=== PATIENT | male | born 1980 | race Caucasian/White ===

== ENCOUNTER 2016-12-14 21:40 | Emergency (ER) | payer BC ==
[~2016-12-14] VITALS: Ht 175.3 cm; Wt 85.5 kg
[~2016-12-14 21:40] MED LIST: BENLYSTA120 MG; DOXYCYCLINE 10100 MG PO; HYDROXYCHLOR; LEVOXYL0.05 MG PO; LORTAB 5/500 501 TAB; LORTAB 5/500 501 TAB PO; MOTRIN 800800 MG/TAB PO; NO HOME MEDICATIONS; NORCO 325 MG-51 TAB PO; PREDNISONE 5MG5 MG PO; PREDNISONE10 MG; PREDNISONE10 MG PO; PREDNISONE20 MG PO; ULTRAM 50MG TAB50 MG; ULTRAM 50MG TAB50 MG PO; ZOFRAN 4MG T4 MG/TAB PO; ZOFRAN ODT4 MG PO; ZOFRAN8 MG PO
[2016-12-14 21:44] VITALS: TEMP 100.6
[2016-12-14] MEDS ORDERED: MOTRIN 800800 MG/TAB PO (22:08)
[2016-12-14] MEDS ORDERED: PLAQUENIL 200M200 MG PO (22:09)
[2016-12-14 22:29] LABS: BASO % 0.2 % (0.0-2.0); EOS % 0.5 % (0-4.0); GRAN # 6.7 (1.4-6.5); GRAN % 79.3 % (42.2-75.2); HEMATOCRIT 43.6 % (42.0-52.0); LYMPH # 0.9 (1.2-3.4); LYMPH % 10.4 % (20.0-51.0); MEAN CELL VOLUME 88 fl (80.0-100.0); MEAN CORPUSCULAR HEMOGLOBIN 30 pg (27.0-31.0); MEAN CORPUSCULAR HGB CONC 34 g/dl (33.0-37.0); MEAN PLATELET VOLUME 9.6 fl (7.4-10.4); MONO # 0.8 (0.1-0.6); MONO % 8.9 % (1.7-9.3); PLATELET COUNT 178 K/mm3 (130-400); RED BLOOD COUNT 4.98 M/mm3 (4.20-5.60); REDCELL DISTRIBUTION WIDTH-CV 13.2 % (11.5-14.5); WHITE BLOOD COUNT 8.4 K/mm3 (4.8-10.8)
[2016-12-14 22:44] LABS: ADJUSTED CALCIUM 9.2 mg/dL (8.4-10.2); ALBUMIN 4.4 gm/dL (3.5-5.0); BILIRUBIN,TOTAL 0.8 mg/dL (0.0-1.0); C-REACTIVE PROTEIN 6.1 mg/dL (0.0-0.9); CALCIUM 9.5 mg/dL (8.4-10.2); CREATININE, serum 1.03 mg/dL (0.66-1.25); TOTAL PROTEIN 8.5 gm/dL (6.4-8.2)
[2016-12-14 23:07] LABS: INFLUENZA B NEGATIVE
[2016-12-14 23:12] LABS: ERYTHROCYTE SEDIMENTATION RATE 40 mm/hr (0-15)
[2016-12-14 23:20] LABS: PH 6 (5-8); SQUAMOUS EPITHELIAL 0-2 /hpf; URINE APPEARANCE Clear; URINE BACTERIA None Seen /hpf; URINE BILIRUBIN Negative (NEGATIVE); URINE BLOOD Negative (NEGATIVE); URINE COLOR Yellow; URINE GLUCOSE Negative (NEGATIVE); URINE KETONE Negative (NEGATIVE); URINE UROBILINOGEN Negative (NEGATIVE); URINE WBC 0-2 /hpf
[2016-12-15 00:37] LABS: CEREBROSPINAL TUBE #1; CEREBROSPINAL TUBE #4; CSF APPEARANCE CLEAR; CSF COLOR COLORLESS
[2016-12-15] MEDS ORDERED: NORCO 325 MG-51 TAB PO (01:03)
[2016-12-15 01:07] VITALS: BP 117/86; PULSE 86
== END 2016-12-15 01:09 | disposition home or self-care (01) ==
LOC: COL.ER 21:40
PROVIDERS: Emergency Medicine
DX: R51 Headache (principal); R50.9 Fever, unspecified; F17.210 Nicotine dependence, cigarettes, uncomplicated; M54.2 Cervicalgia
CPT/HCPCS: J0696; J1170; J2405; J7030; J7512

== ENCOUNTER → 2017-02-08 | Outpatient (CLI) | payer BC ==
[~2017-02-08] MED LIST changes: +PLAQUENIL 200M200 MG PO
== END ==
LOC: COL.RAD 08:04
DX: M32.19 Other organ or system involvement in systemic lupus erythematosus (principal)
CPT/HCPCS: A9585

== ENCOUNTER 2017-07-07 14:02 | Emergency (ER) | payer BC ==
[~2017-07-07] VITALS: Ht 175.3 cm; Wt 92.3 kg
[2017-07-07 14:04] VITALS: TEMP 98.9
[2017-07-07] MEDS ORDERED: ASPIRIN 81M81 MG/TA2 PO (14:16)
[2017-07-07] MEDS ORDERED: CELLCEPT 250MG250 MG PO (14:18)
[2017-07-07 14:26] LABS: HEMOGLOBIN 16.4 g/dl (13.5-18.0); MEAN CELL VOLUME 90 fl (80.0-100.0); MEAN CORPUSCULAR HEMOGLOBIN 31 pg (27.0-31.0); MEAN CORPUSCULAR HGB CONC 34 g/dl (33.0-37.0); MEAN PLATELET VOLUME 11.3 fl (7.4-10.4); PLATELET COUNT 244 K/mm3 (130-400); RED BLOOD COUNT 5.31 M/mm3 (4.20-5.60); WHITE BLOOD COUNT 13.7 K/mm3 (4.8-10.8)
[2017-07-07 14:30] LABS: PROTHROMBIN TIME 10.5 SECONDS (9.7-12.8)
[2017-07-07 14:31] LABS: ADD PATHOLOGY DIFF REVIEW NO; TOTAL CELLS COUNTED 0
[2017-07-07 14:33] LABS: PARTIAL THROMBOPLASTIN TIME 30.6 SECONDS (26.0-37.0)
[2017-07-07 14:37] LABS: ADJUSTED CALCIUM 9.3 mg/dL (8.4-10.2); ALANINE AMINOTRANSFERASE 37 U/L (21-72); ALBUMIN 4.7 gm/dL (3.5-5.0); ALKALINE PHOSPHATASE 94 U/L (50-136); ANION GAP 13 mmol/L (7-16); BILIRUBIN,TOTAL 0.6 mg/dL (0.0-1.0); BLOOD UREA NITROGEN 16 mg/dL (9-20); C-REACTIVE PROTEIN 1.3 mg/dL (0.0-0.9); CALCIUM 9.9 mg/dL (8.4-10.2); CARBON DIOXIDE 22 mmol/L (22-30); CHLORIDE 105 mmol/L (98-107); CREATININE, serum 0.92 mg/dL (0.66-1.25); GLUCOSE 107 mg/dL (74-106); LIPASE 83 U/L (23-300); POTASSIUM 4.4 mmol/L (3.4-5.0); SODIUM 139 mmol/L (137-145); TOTAL PROTEIN 8.1 gm/dL (6.4-8.2)
[2017-07-07 14:47] LABS: B-TYPE NATRIURETIC PEPTIDE 47 pg/mL (0-125); TROPONIN-I < 0.012 ng/mL (0.000-0.034)
[2017-07-07 15:27] LABS: ERYTHROCYTE SEDIMENTATION RATE 4 mm/hr (0-15)
[2017-07-07] MEDS ORDERED: DOXYCYCLINE 10100 MG PO (17:45)
[2017-07-07] MEDS ORDERED: NORCO 325 MG-51 TAB PO (17:45)
[2017-07-07 18:10] VITALS: BP 117/77; PULSE 76
== END 2017-07-07 18:10 | disposition home or self-care (01) ==
LOC: COL.ER 14:02
PROVIDERS: Emergency Medicine
DX: R07.89 Other chest pain (principal); F17.210 Nicotine dependence, cigarettes, uncomplicated; Z87.39 Personal history of other diseases of the musculoskeletal system and connective tissue; Z79.82 Long term (current) use of aspirin
CPT/HCPCS: J1170; J7030; J7512

== ENCOUNTER 2017-09-03 17:16 | Emergency (ER) | payer BC ==
[~2017-09-03] VITALS: Ht 175.3 cm; Wt 90.9 kg
[~2017-09-03 17:16] MED LIST changes: +ASPIRIN 81M81 MG/TA2 PO; +CELLCEPT 250MG250 MG PO
[2017-09-03 17:21] VITALS: TEMP 98.2
[2017-09-03 18:03] LABS: HEMATOCRIT 45.7 % (42.0-52.0); HEMOGLOBIN 15.6 g/dl (13.5-18.0); MEAN CELL VOLUME 91 fl (80.0-100.0); MEAN CORPUSCULAR HEMOGLOBIN 31 pg (27.0-31.0); MEAN CORPUSCULAR HGB CONC 34 g/dl (33.0-37.0); MEAN PLATELET VOLUME 10.1 fl (7.4-10.4); PLATELET COUNT 323 K/mm3 (130-400); RED BLOOD COUNT 5.04 M/mm3 (4.20-5.60); WHITE BLOOD COUNT 11.8 K/mm3 (4.8-10.8)
[2017-09-03 18:05] LABS: ADD PATHOLOGY DIFF REVIEW NO
[2017-09-03 18:15] LABS: ADJUSTED CALCIUM 8.7 mg/dL (8.4-10.2); ALANINE AMINOTRANSFERASE 42 U/L (21-72); ALBUMIN 4.6 gm/dL (3.5-5.0); ALKALINE PHOSPHATASE 108 U/L (50-136); ANION GAP 11 mmol/L (7-16); BILIRUBIN,TOTAL 0.5 mg/dL (0.0-1.0); BLOOD UREA NITROGEN 16 mg/dL (9-20); CALCIUM 9.2 mg/dL (8.4-10.2); CARBON DIOXIDE 23 mmol/L (22-30); CHLORIDE 105 mmol/L (98-107); CREATININE, serum 1.02 mg/dL (0.66-1.25); GLUCOSE 114 mg/dL (74-106); POTASSIUM 4.8 mmol/L (3.4-5.0); SODIUM 140 mmol/L (137-145); TOTAL PROTEIN 7.7 gm/dL (6.4-8.2)
[2017-09-03 18:49] LABS: TROPONIN-I < 0.012 ng/mL (0.000-0.034)
[2017-09-03 19:07] LABS: ERYTHROCYTE SEDIMENTATION RATE 11 mm/hr (0-15)
[2017-09-03 19:13] LABS: BAND 35 % (0-10); LYMPHOCYTE 4 % (20.0-51.0); NEUTROPHILS 60 % (42.0-75.2); PLATELET ESTIMATE NORMAL (NORMAL); TOTAL CELLS COUNTED 100
[2017-09-03 19:45] VITALS: BP 130/98; PULSE 89
== END 2017-09-03 19:45 | disposition home or self-care (01) ==
LOC: COL.ER 17:16
PROVIDERS: Family Medicine
DX: M32.9 Systemic lupus erythematosus, unspecified (principal); G04.90 Encephalitis and encephalomyelitis, unspecified; Z79.82 Long term (current) use of aspirin

== ENCOUNTER 2018-03-03 17:30 | Emergency (ER) | payer BC ==
[~2018-03-03] VITALS: Ht 175.3 cm; Wt 90.0 kg
[2018-03-03 17:34] VITALS: TEMP 98.9
[2018-03-03] MEDS ORDERED: BENLYSTA400 MG IV (17:52)
[2018-03-03 18:07] LABS: MEAN CELL VOLUME 88 fl (80.0-100.0); MEAN CORPUSCULAR HEMOGLOBIN 31 pg (27.0-31.0); MEAN CORPUSCULAR HGB CONC 35 g/dl (33.0-37.0); MEAN PLATELET VOLUME 10.1 fl (7.4-10.4); PLATELET COUNT 254 K/mm3 (130-400); RED BLOOD COUNT 4.87 M/mm3 (4.20-5.60); REDCELL DISTRIBUTION WIDTH-CV 13.4 % (11.5-14.5)
[2018-03-03 18:21] LABS: ALBUMIN 4.1 gm/dL (3.5-5.0); BILIRUBIN,TOTAL 0.4 mg/dL (0.0-1.0); CALCIUM 8.7 mg/dL (8.4-10.2); CREATININE, serum 0.98 mg/dL (0.66-1.25); POTASSIUM 3.7 mmol/L (3.4-5.0); TOTAL PROTEIN 7.7 gm/dL (6.4-8.2)
[2018-03-03 18:23] LABS: ANISOCYTOSIS 1+; BAND 7 % (0-10); LYMPHOCYTE 8 % (20.0-51.0); NEUTROPHILS 81 % (42.0-75.2); PLATELET ESTIMATE NORMAL (NORMAL)
[2018-03-03 18:32] LABS: ERYTHROCYTE SEDIMENTATION RATE 9 mm/hr (0-15)
[2018-03-03] MEDS ORDERED: LEVAQUIN 5500 MG/TA1 PO (18:50)
[2018-03-03 19:08] VITALS: BP 132/88; PULSE 86
[2018-03-04] MEDS ORDERED: OMNICEF 300MG300 MG PO (12:10)
[2018-03-04] MEDS ORDERED: TYLENOL 325MG325 MG PO (12:11)
[2018-03-04] MEDS ORDERED: NORCO 325 MG-51 TAB PO (12:12)
== END 2018-03-03 19:09 | disposition home or self-care (01) ==
LOC: COL.ER 17:30
PROVIDERS: Family Medicine
DX: M17.12 Unilateral primary osteoarthritis, left knee (principal)
CPT/HCPCS: J2270; J7030

== ENCOUNTER 2018-03-03 21:36 | Observation (INO) | payer BC ==
[~2018-03-03] VITALS: Ht 175.3 cm; Wt 89.8 kg
[~2018-03-03 21:36] MED LIST changes: +BENLYSTA400 MG IV; +LEVAQUIN 5500 MG/TA1 PO
[2018-03-03 23:59] LABS: SYNOVIAL FL. MONONUCLEAR 25.5 % (0-75); SYNOVIAL FLUID RBC 1112000 /mm3 (0-0)
[2018-03-04 00:06] LABS: SYNOVIAL FLUID APPEARANCE CLOUDY; SYNOVIAL FLUID COLOR RED
[2018-03-04 00:39] VITALS: BP 150/90; PULSE 74; TEMP 97.9
[2018-03-04 03:46] VITALS: BP 124/80; PULSE 74; TEMP 97.6
[2018-03-04 07:32] LABS: BASO % 0.3 % (0.0-2.0); EOS # 0.2 (0.0-0.7); EOS % 3.2 % (0-4.0); GRAN # 5.2 (1.4-6.5); HEMATOCRIT 40.3 % (42.0-52.0); HEMOGLOBIN 13.8 g/dl (13.5-18.0); LYMPH # 1.1 (1.2-3.4); LYMPH % 14.7 % (20.0-51.0); MEAN CELL VOLUME 89 fl (80.0-100.0); MEAN CORPUSCULAR HEMOGLOBIN 31 pg (27.0-31.0); MEAN CORPUSCULAR HGB CONC 34 g/dl (33.0-37.0); MEAN PLATELET VOLUME 10.7 fl (7.4-10.4); MONO # 0.8 (0.1-0.6); MONO % 10.4 % (1.7-9.3); PLATELET COUNT 234 K/mm3 (130-400); RED BLOOD COUNT 4.52 M/mm3 (4.20-5.60); REDCELL DISTRIBUTION WIDTH-CV 13.6 % (11.5-14.5)
[2018-03-04 07:41] LABS: CALCIUM 8.2 mg/dL (8.4-10.2); CREATININE, serum 0.89 mg/dL (0.66-1.25)
[2018-03-04 08:03] VITALS: BP 128/91; PULSE 87; TEMP 98.7
[2018-03-04 08:06] VITALS: BP 128/91; PULSE 87; TEMP 98.6
[2018-03-04 11:53] VITALS: BP 122/67; PULSE 69; TEMP 98.7
[2018-03-04] MEDS ORDERED: OMNICEF 300MG300 MG PO (12:10)
[2018-03-04] MEDS ORDERED: TYLENOL 325MG325 MG PO (12:11)
[2018-03-04] MEDS ORDERED: NORCO 325 MG-51 TAB PO (12:12)
[2018-03-05 10:54] LABS: SYNOVIAL FLUID WBC 2480 /mm3 (200-600)
== END 2018-03-04 12:45 | disposition home or self-care (01) ==
LOC: COL.ER 21:36 → MEDICAL 23:18
PROVIDERS: Emergency Medicine; Nurse Practitioner
DX: M25.562 Pain in left knee (principal); M32.9 Systemic lupus erythematosus, unspecified; G89.29 Other chronic pain; Z79.52 Long term (current) use of systemic steroids; Z79.899 Other long term (current) drug therapy; F17.210 Nicotine dependence, cigarettes, uncomplicated
CPT/HCPCS: G8978-GP; G8979-GP; J0690; J0696; J1170; J3370; J7040

== ENCOUNTER → 2018-06-12 | Outpatient (CLI) | payer BC ==
[~2018-06-12] MED LIST changes: +OMNICEF 300MG300 MG PO; +TYLENOL 325MG325 MG PO
== END ==
LOC: COL.RAD 13:45
DX: R09.89 Other specified symptoms and signs involving the circulatory and respiratory systems (principal); R07.9 Chest pain, unspecified; R05 Cough

== ENCOUNTER → 2018-11-11 | Outpatient (CLI) | payer BC ==
[2018-11-11 17:22] LABS: BASO % 0.1 % (0.0-2.0); EOS % 0.5 % (0-4.0); GRAN % 84.3 % (42.2-75.2); HEMATOCRIT 46.4 % (42.0-52.0); HEMOGLOBIN 15.5 g/dl (13.5-18.0); LYMPH # 0.7 (1.2-3.4); LYMPH % 8.7 % (20.0-51.0); MEAN CELL VOLUME 90 fl (80.0-100.0); MEAN CORPUSCULAR HEMOGLOBIN 30 pg (27.0-31.0); MEAN CORPUSCULAR HGB CONC 33 g/dl (33.0-37.0); MONO # 0.5 (0.1-0.6); PLATELET COUNT 333 K/mm3 (130-400); RED BLOOD COUNT 5.13 M/mm3 (4.20-5.60); REDCELL DISTRIBUTION WIDTH-CV 12.8 % (11.5-14.5)
[2018-11-11 17:32] LABS: ALBUMIN 4.2 gm/dL (3.5-5.0); BILIRUBIN,TOTAL 0.4 mg/dL (0.0-1.0); CALCIUM 9.1 mg/dL (8.4-10.2); CREATININE, serum 0.86 mg/dL (0.66-1.25); POTASSIUM 4.8 mmol/L (3.4-5.0); TOTAL PROTEIN 7.5 gm/dL (6.4-8.2)
== END ==
LOC: ZCOL.LAB 16:34
PROVIDERS: Family Medicine
DX: M32.9 Systemic lupus erythematosus, unspecified (principal)

== ENCOUNTER → 2018-12-06 | Outpatient (CLI) | payer BC | LOC: ZCOL.LAB 15:57 | PROVIDERS: Family Medicine | DX: Z13.1 Encounter for screening for diabetes mellitus (principal); Z86.39 Personal history of other endocrine, nutritional and metabolic disease ==

== ENCOUNTER → 2019-02-04 | Outpatient (CLI) | payer BC ==
[2019-02-04 12:41] LABS: HEMATOCRIT 41.4 % (42.0-52.0); HEMOGLOBIN 13.7 g/dl (13.5-18.0); MEAN CELL VOLUME 89 fl (80.0-100.0); MEAN CORPUSCULAR HEMOGLOBIN 30 pg (27.0-31.0); MEAN CORPUSCULAR HGB CONC 33 g/dl (33.0-37.0); MEAN PLATELET VOLUME 10.5 fl (7.4-10.4); PLATELET COUNT 240 K/mm3 (130-400); RED BLOOD COUNT 4.64 M/mm3 (4.20-5.60); REDCELL DISTRIBUTION WIDTH-CV 13.5 % (11.5-14.5)
[2019-02-04 13:03] LABS: ALBUMIN 3.9 gm/dL (3.5-5.0); BILIRUBIN,TOTAL 0.4 mg/dL (0.0-1.0); C-REACTIVE PROTEIN 5.9 mg/dL (0.0-0.9); CREATININE, serum 1.07 (0.66-1.25); POTASSIUM 4.9 mmol/L (3.4-5.0); TOTAL PROTEIN 7.5 gm/dL (6.4-8.2)
[2019-02-04 13:08] LABS: BAND 3 % (0-10); BASOPHIL 1 % (0-2); LYMPHOCYTE 2 % (20.0-51.0); NEUTROPHILS 91 % (42.0-75.2); PLATELET ESTIMATE NORMAL (NORMAL)
[2019-02-04 13:31] LABS: THYROID STIMULATING HORMONE 6.69 uIU/mL (0.465-4.680)
== END ==
LOC: COL.LAB 11:52
PROVIDERS: Family Medicine
DX: F32.2 Major depressive disorder, single episode, severe without psychotic features (principal); R50.9 Fever, unspecified

== ENCOUNTER → 2019-02-26 | Outpatient (CLI) | payer BC ==
[2019-02-26 17:14] LABS: HIV 1/2 Antibodies Non-Reactive; HIV-1p24 Antigen Non-Reactive
[2019-02-28 03:45] LABS: RPR (VDRL) XXX
== END ==
LOC: COL.LAB 15:45
PROVIDERS: Family Medicine
DX: Z11.4 Encounter for screening for human immunodeficiency virus [HIV] (principal); Z11.3 Encounter for screening for infections with a predominantly sexual mode of transmission; Z20.5 Contact with and (suspected) exposure to viral hepatitis

== ENCOUNTER 2019-03-15 02:37 | Emergency (ER) | payer BC ==
[~2019-03-15] VITALS: Ht 175.3 cm; Wt 84.1 kg
[2019-03-15 02:43] VITALS: BP 158/98
[2019-03-15 03:15] LABS: HEMATOCRIT 38.5 % (42.0-52.0); HEMOGLOBIN 12.4 g/dl (13.5-18.0); MEAN CELL VOLUME 91 fl (80.0-100.0); MEAN CORPUSCULAR HEMOGLOBIN 30 pg (27.0-31.0); MEAN CORPUSCULAR HGB CONC 32 g/dl (33.0-37.0); MEAN PLATELET VOLUME 9.9 fl (7.4-10.4); PLATELET COUNT 361 K/mm3 (130-400); RED BLOOD COUNT 4.21 M/mm3 (4.20-5.60); REDCELL DISTRIBUTION WIDTH-CV 16.2 % (11.5-14.5)
[2019-03-15 03:25] LABS: ALBUMIN 3.6 gm/dL (3.5-5.0); BILIRUBIN,TOTAL 0.3 mg/dL (0.0-1.0); CALCIUM 8.6 mg/dL (8.4-10.2); CREATININE, serum 1.01 (0.66-1.25); POTASSIUM 3.8 mmol/L (3.4-5.0); TOTAL PROTEIN 6.4 gm/dL (6.4-8.2)
[2019-03-15 03:44] LABS: ANISOCYTOSIS 1+; BAND 14 % (0-10); LYMPHOCYTE 10 % (20.0-51.0); NEUTROPHILS 71 % (42.0-75.2); PLATELET ESTIMATE NORMAL (NORMAL)
[2019-03-15 05:55] LABS: COLLECTION METHOD CLEAN CATCH
[2019-03-15 06:01] LABS: MUCOUS Present /lpf; PH 6 (5-8); SQUAMOUS EPITHELIAL None Seen /hpf; URINE APPEARANCE Clear; URINE BACTERIA None Seen /hpf; URINE BILIRUBIN Negative (NEGATIVE); URINE BLOOD Negative (NEGATIVE); URINE COLOR Yellow; URINE GLUCOSE Negative (NEGATIVE); URINE KETONE Negative (NEGATIVE); URINE LEUKOCYTE ESTERASE Negative (NEGATIVE); URINE NITRATE Negative (NEGATIVE); URINE PROTEIN(semi-quant) Negative (NEGATIVE); URINE RBC None Seen /hpf; URINE UROBILINOGEN Negative (NEGATIVE)
[2019-03-15] MEDS ORDERED: CIPRO 500MG TA500 MG PO (06:23)
[2019-03-15] MEDS ORDERED: NORCO 325 MG-51 TAB PO (06:23)
[2019-03-15 08:18] VITALS: PULSE 86; TEMP 98.4
== END 2019-03-15 08:18 | disposition home or self-care (01) ==
LOC: COL.ER 02:37
PROVIDERS: Emergency Medicine
DX: N45.1 Epididymitis (principal)
CPT/HCPCS: J1170; J1885; J2405; J2543; J7030

== ENCOUNTER → 2019-03-26 | Outpatient (CLI) | payer BC ==
[~2019-03-26] MED LIST changes: +CIPRO 500MG TA500 MG PO
== END ==
LOC: BHSO 10:51
DX: F06.32 Mood disorder due to known physiological condition with major depressive-like episode (principal)

== ENCOUNTER → 2019-04-02 | Outpatient (CLI) | payer BC | LOC: COL.RAD 15:00 | DX: N50.811 Right testicular pain (principal) ==

== ENCOUNTER → 2019-04-24 | Outpatient (CLI) | payer BC | LOC: BHSO 10:44 | DX: F31.81 Bipolar II disorder (principal) | CPT/HCPCS: G0463 ==

== ENCOUNTER 2019-11-19 17:51 | Emergency (ER) | payer BC ==
[~2019-11-19] VITALS: Ht 175.3 cm; Wt 95.5 kg
[~2019-11-19 17:51] MED LIST changes: +CELLCEPT 5500 MG/TAB PO; +FOSAMAX 70MG TA70 MG PO; +KLONOPIN 0.5MG0.5 MG PO; +PHENERGAN 25 TA25 MG PO; +REMERON30 MG PO
[2019-11-19 17:55] VITALS: BP 151/88; TEMP 98.4
[2019-11-19 18:34] LABS: BASO % 0.3 % (0.0-2.0); EOS # 0.2 (0.0-0.7); EOS % 2.8 % (0-4.0); GRAN # 3.9 (1.4-6.5); GRAN % 61.3 % (42.2-75.2); HEMATOCRIT 39.8 % (42.0-52.0); HEMOGLOBIN 13.5 g/dl (13.5-18.0); LYMPH # 1.5 (1.2-3.4); LYMPH % 22.7 % (20.0-51.0); MEAN CELL VOLUME 88 fl (80.0-100.0); MEAN CORPUSCULAR HEMOGLOBIN 30 pg (27.0-31.0); MEAN CORPUSCULAR HGB CONC 34 g/dl (33.0-37.0); MEAN PLATELET VOLUME 10.1 fl (7.4-10.4); MONO # 0.8 (0.1-0.6); MONO % 12.6 % (1.7-9.3); PLATELET COUNT 406 K/mm3 (130-400); RED BLOOD COUNT 4.54 M/mm3 (4.20-5.60); REDCELL DISTRIBUTION WIDTH-CV 13.3 % (11.5-14.5)
[2019-11-19 18:49] LABS: ERYTHROCYTE SEDIMENTATION RATE 14 mm/hr (0-15)
[2019-11-19 18:50] LABS: ALBUMIN 4.3 gm/dL (3.5-5.0); BILIRUBIN,TOTAL 0.6 mg/dL (0.0-1.0); C-REACTIVE PROTEIN 1.1 mg/dL (0.0-0.9); CALCIUM 8.5 mg/dL (8.4-10.2); CREATININE, serum 1.24 (0.66-1.25); POTASSIUM 4.3 mmol/L (3.4-5.0); TOTAL PROTEIN 7.4 gm/dL (6.4-8.2)
[2019-11-19] MEDS ORDERED: PREDNISONE10 MG PO (19:22)
[2019-11-19] MEDS ORDERED: NORCO 325 MG-51 TAB PO (19:23)
[2019-11-19 19:41] VITALS: PULSE 96
== END 2019-11-19 19:41 | disposition home or self-care (01) ==
LOC: COL.ER 17:51
PROVIDERS: Family Medicine
DX: M32.9 Systemic lupus erythematosus, unspecified (principal); Z79.1 Long term (current) use of non-steroidal anti-inflammatories (NSAID)
CPT/HCPCS: J1885; J2270; J2405; J7512

== ENCOUNTER 2020-08-15 13:49 | Emergency (ER) | payer BC ==
[~2020-08-15] VITALS: Ht 175.3 cm; Wt 97.7 kg
[2020-08-15 14:01] VITALS: BP 159/84; TEMP 98.1
[2020-08-15] MEDS ORDERED: PRINIVIL10 MG PO (14:58)
[2020-08-15 15:30] LABS: BASO % 0.2 % (0.0-2.0); EOS # 0.1 (0.0-0.7); EOS % 0.5 % (0-4.0); GRAN # 9.2 (1.4-6.5); GRAN % 86.4 % (42.2-75.2); HEMATOCRIT 39.6 % (42.0-52.0); HEMOGLOBIN 13.4 g/dl (13.5-18.0); LYMPH # 0.6 (1.2-3.4); LYMPH % 5.5 % (20.0-51.0); MEAN CELL VOLUME 89 fl (80.0-100.0); MEAN CORPUSCULAR HEMOGLOBIN 30 pg (27.0-31.0); MEAN CORPUSCULAR HGB CONC 34 g/dl (33.0-37.0); MEAN PLATELET VOLUME 9.5 fl (7.4-10.4); MONO # 0.7 (0.1-0.6); MONO % 6.6 % (1.7-9.3); PLATELET COUNT 309 K/mm3 (130-400); RED BLOOD COUNT 4.45 M/mm3 (4.20-5.60); REDCELL DISTRIBUTION WIDTH-CV 14.5 % (11.5-14.5)
[2020-08-15 15:39] LABS: BILIRUBIN,TOTAL 0.3 mg/dL (0.0-1.0); C-REACTIVE PROTEIN 3.2 mg/dL (0.0-0.9); CALCIUM 8.3 mg/dL (8.4-10.2); CREATININE, serum 1.13 (0.66-1.25); POTASSIUM 4.5 mmol/L (3.4-5.0); TOTAL PROTEIN 6.9 gm/dL (6.4-8.2)
[2020-08-15] MEDS ORDERED: NORCO 325 MG-51 TAB PO (16:59)
[2020-08-15 18:06] VITALS: PULSE 99
== END 2020-08-15 18:06 | disposition home or self-care (01) ==
LOC: COL.ER 13:49
PROVIDERS: Nurse Practitioner
DX: K63.89 Other specified diseases of intestine (principal); F17.210 Nicotine dependence, cigarettes, uncomplicated; Z88.1 Allergy status to other antibiotic agents; Z79.52 Long term (current) use of systemic steroids
CPT/HCPCS: J2270; J2405; J7030; Q9967

== ENCOUNTER 2022-06-13 05:51 | Emergency (ER) | payer MEDICARE, MEDICAID ==
[~2022-06-13] VITALS: Ht 175.3 cm; Wt 97.7 kg
[~2022-06-13 05:51] MED LIST changes: +PRINIVIL10 MG PO
[2022-06-13 06:01] VITALS: TEMP 98
[2022-06-13] MEDS ORDERED: COUMADIN4 MG PO (06:11)
[2022-06-13] MEDS ORDERED: ROXICODONE 55 MG/TAB PO (06:11)
[2022-06-13] MEDS ORDERED: TYLENOL 325MG325 MG (06:12)
[2022-06-13] MEDS ORDERED: ASPIRIN 81M81 MG/TA2 PO (06:12)
[2022-06-13] MEDS ORDERED: PREDNISONE10 MG PO (06:13)
[2022-06-13] MEDS ORDERED: LASIX 40MG TABL40 MG PO (06:13)
[2022-06-13] MEDS ORDERED: WELLBUTRIN SR150 M1 PO (06:13)
[2022-06-13] MEDS ORDERED: LOPRESSOR 225 MG/TAB PO (06:13)
[2022-06-13] MEDS ORDERED: TIROSINT112 MC1 PO (06:14)
[2022-06-13] MEDS ORDERED: REMERON SOLTAB30 MG PO (06:14)
[2022-06-13] MEDS ORDERED: KLONOPIN WAFER0.5 MG PO (06:14)
[2022-06-13] MEDS ORDERED: BENLYSTA200 MG/1 M SQ (06:15)
[2022-06-13 06:33] LABS: MEAN CELL VOLUME 87 fl (80.0-100.0); MEAN CORPUSCULAR HGB CONC 32 g/dl (33.0-37.0); MEAN PLATELET VOLUME 9.4 fl (7.4-10.4); PLATELET COUNT 624 K/mm3 (130-400); RED BLOOD COUNT 2.79 M/mm3 (4.20-5.60)
[2022-06-13 06:35] LABS: HEMATOCRIT 24.2 % (42.0-52.0); HEMOGLOBIN 7.8 g/dl (13.5-18.0); MEAN CORPUSCULAR HEMOGLOBIN 28 pg (27-31)
[2022-06-13 06:38] LABS: INR 4.4 (0.8-3.0)
[2022-06-13 06:47] LABS: PROTHROMBIN TIME 50.9 SECONDS (9.7-12.8)
[2022-06-13 07:26] VITALS: BP 110/62; PULSE 74
== END 2022-06-13 07:33 | disposition home or self-care (01) ==
LOC: COL.ER 05:51
PROVIDERS: Emergency Medicine
DX: D64.9 Anemia, unspecified (principal); R04.0 Epistaxis; R79.1 Abnormal coagulation profile; Z95.2 Presence of prosthetic heart valve; Z79.01 Long term (current) use of anticoagulants

== ENCOUNTER 2022-11-03 15:19 | Outpatient (RCR) | payer MEDICARE, MEDICAID ==
[~2022-11-03 15:19] MED LIST changes: +BENLYSTA200 MG/1 M SQ; +COUMADIN4 MG PO; +KLONOPIN WAFER0.5 MG PO; +LASIX 40MG TABL40 MG PO; +LOPRESSOR 225 MG/TAB PO; +REMERON SOLTAB30 MG PO; +ROXICODONE 55 MG/TAB PO; +TIROSINT112 MC1 PO; +TYLENOL 325MG325 MG; +WELLBUTRIN SR150 M1 PO
== END 2022-11-07 | disposition home or self-care (01) ==
LOC: COL.CR
DX: Z48.812 Encounter for surgical aftercare following surgery on the circulatory system (principal); Z95.2 Presence of prosthetic heart valve